=== PATIENT | female | born 1940 | race Caucasian/White ===

== ENCOUNTER 2021-12-12 17:11 | Emergency (ER) | payer MEDICARE, OTHER ==
[2021-12-12] MEDS ORDERED: Lactated Ringers 1,000 ML IV ONE (18:21)
== END 2021-12-12 20:03 | disposition home or self-care (01) ==
LOC: FB.ED 17:11
DX: R42 Dizziness and giddiness (principal); E86.0 Dehydration; Z88.2 Allergy status to sulfonamides; Z79.899 Other long term (current) drug therapy
CPT/HCPCS: 36415; 80048; 80053; 81001; 83735; 85025; 99282; 99284; J7120

== ENCOUNTER 2024-01-08 17:27 | Emergency (ER) | payer MEDICARE, OTHER | END 2024-01-08 18:43 | disposition home or self-care (01) | LOC: FB.ED 17:27 | DX: K92.1 Melena (principal); Z71.1 Person with feared health complaint in whom no diagnosis is made; E03.9 Hypothyroidism, unspecified; I10 Essential (primary) hypertension; E78.00 Pure hypercholesterolemia, unspecified; Z88.2 Allergy status to sulfonamides; Z88.8 Allergy status to other drugs, medicaments and biological substances; Z79.899 Other long term (current) drug therapy | CPT/HCPCS: 82272; 99283; 99284 ==